=== PATIENT | female | born 2000 | race African-American/Black ===

== ENCOUNTER 2022-05-03 12:07 | Emergency (ER) | payer OTHER | END 2022-05-03 15:30 | disposition home or self-care (01) | LOC: CSHERS 12:07 | DX: J06.9 Acute upper respiratory infection, unspecified (principal); Z20.822 Contact with and (suspected) exposure to COVID-19 | CPT/HCPCS: 87804; 99283; U0003; U0005 ==

== ENCOUNTER 2023-05-19 17:36 | Emergency (ER) | payer OTHER, SELFPAY ==
[2023-05-19 19:45] LABS: SARS-CoV-2 NAA Rapid Test Not Detected (NotDetected)
[2023-05-19] MEDS ORDERED: Acetaminophen 325 MG TAB ONE (19:58)
[2023-05-19] MEDS ORDERED: Ibuprofen 200 MG TAB ONE (19:58)
== END 2023-05-19 20:32 | disposition home or self-care (01) ==
LOC: CSHERS 17:36
DX: J02.0 Streptococcal pharyngitis (principal); Z20.822 Contact with and (suspected) exposure to COVID-19
CPT/HCPCS: 87430; 99283